=== PATIENT | male | born 1975 | race Caucasian/White ===

== ENCOUNTER 2016-08-27 11:20 | Emergency (ER) | payer BC, OTHER ==
[~2016-08-27] VITALS: Ht 180.3 cm; Wt 107.4 kg
[~2016-08-27 11:20] MED LIST: IMT100 PO; LPR25 PO; MRLP527 PO; OMEP20CA59 PO
[2016-08-27 11:35] VITALS: TEMP 36.9; Ht 180.3 cm; Wt 107.4 kg
[2016-08-27] MEDS ORDERED: GLUC1CAP35 PO (11:55)
[2016-08-27] MEDS ORDERED: MULT-106 PO (11:55)
[2016-08-27] MEDS ORDERED: CHOL1000 PO (11:55)
--- NOTE | 2016-08-27 12:29 | DIAGNOSTIC IMAGING REPORT ---
CHEST ONE VIEW PORTABLE CLINICAL HISTORY: Dizziness COMPARISON STUDY: No previous studies for comparison. FINDINGS: The cardiac and mediastinal contours are normal. There is no evidence of focal pulmonary consolidation. There is no evidence of failure. No pleural effusions are visualized.[ IMPRESSION: No active disease in the chest. Electronically signed by: Sudarshan Schreiber M.D. 08/27/2016 12:28 PM Dictated Date/Time: 08/27/2016 12:27 PM
[2016-08-27 13:05] LABS: BASO % 0.4 %; BASO ABS # 0.02 K/uL (0-0.2); COMPLETE YES; EOS % 2.6 %; HEMATOCRIT 42.5 % (42-52); IG% 0.5 %; LYMPH % 35.6 %; LYMPH ABS # 1.95 K/uL (1.2-3.4); MEAN CORPUSCULAR HEMOGLOBIN 30.2 pg (25-34); MEAN PLATELET VOLUME 9.1 fL (7.4-10.4); NEUT % 52.9 %; PLATELET COUNT 222 K/uL (130-400); RED BLOOD COUNT 5.06 M/uL (4.7-6.1); WHITE BLOOD COUNT 5.47 K/uL (4.8-10.8)
[2016-08-27] MEDS ORDERED: SODIUM CHLORIDE 0.9% 1000ML 1,000 ML IV STA (13:13)
[2016-08-27 13:14] LABS: BUN/CREATININE RATIO 15.4 (10-20); CALCIUM 9.3 mg/dl (8.5-10.1)
[2016-08-27 13:24] LABS: CKMB/CK RATIO 1.8 (0-3.0); THYROID STIMULATING HORMONE 2.08 uIu/ml (0.300-4.500)
[2016-08-27 13:30] LABS: URINE APPEARANCE CLOUDY (CLEAR); URINE BILIRUBIN NEG (NEG); URINE COLOR YELLOW; URINE EPITHELIAL CELL AUTO 0-5 /lpf (0-5); URINE NITRITE NEG (NEG); URINE SPECIFIC GRAVITY 1.004 (1.000-1.030); UROBILINOGEN NEG (NEG); ZZUR CULT IF INDIC CLEAN CATCH NO
[2016-08-27 13:31] LABS: MANUAL MICROSCOPIC REQUIRED? NO; REVIEW REQ? NO
[2016-08-27] MEDS ORDERED: OPTIRAY 320 IV PRN (14:30)
--- NOTE | 2016-08-27 15:10 | DIAGNOSTIC IMAGING REPORT ---
CT HEAD WITHOUT CONTRAST (CT) CLINICAL HISTORY: Frontal ELDER, dizziness SHORTNESS OF BREATH COMPARISON STUDY: No previous studies for comparison. TECHNIQUE: Axial CT of the brain is performed from the vertex to the skull base. IV contrast was not administered for this examination. CT DOSE: 720.95 mGycm FINDINGS: No intra or extra-axial mass lesions are visualized. There is no CT evidence of acute cortical infarction. There is no evidence of midline shift. There is no acute hemorrhage. No calvarial fractures are visualized. There is no evidence of pathologic ventricular dilatation. There is no evidence of acute sinusitis IMPRESSION: No acute intracranial findings Electronically signed by: Sudarshan Schreiber M.D. 08/27/2016 3:08 PM Dictated Date/Time: 08/27/2016 3:08 PM
--- NOTE | 2016-08-27 15:15 | DIAGNOSTIC IMAGING REPORT ---
CT ANGIOGRAM OF THE CHEST CLINICAL HISTORY: Torus of breath, dizziness, elevated d-dimer. COMPARISON STUDY: Chest x-ray dated 08/27/2016 TECHNIQUE: Following the IV administration of 118 mL of Optiray-320, CT angiogram of the thorax was performed from the thoracic inlet to the lung bases utilizing the pulmonary embolus protocol. Images are reviewed in the axial, sagittal, and coronal planes. IV contrast was administered without complication. MIP imaging was performed. CT DOSE: 527.24 mGycm FINDINGS: No pathologically enlarged axillary mediastinal or hilar lymph nodes were visualized. There was no evidence of thoracic aortic dilatation. There were no pulmonary artery filling defects to indicate acute pulmonary embolism. No pleural effusions are visualized. There are mild dependent atelectatic changes. There is no focal pulmonary consolidation. There is free intraperitoneal air, possibly related to recent surgery. Please correlate with date of prior surgery. IMPRESSION: 1. No acute intrathoracic findings. No CT evidence of acute pulmonary embolus. 2. Free intraperitoneal air. By history the patient is status post recent hernia surgery. Please correlate clinically as well as with the date of recent surgery. Electronically signed by: Sudarshan Schreiber M.D. 08/27/2016 3:14 PM Dictated Date/Time: 08/27/2016 3:09 PM
[2016-08-27 16:06] VITALS: BP 109/78; PULSE 62; O2SAT 100
--- NOTE | 2016-08-27 23:26 | EMERGENCY ROOM VISIT NOTE ---
History First contact with patient: 13:02 Chief Complaint: DIZZY Stated Complaint: LIGHT HEADED, DIZZY,S/P SURGERY 08/21/16 Nursing Triage Summary: pt c/o intermittent dizziness since . on saturday patietn had hernia repair. ever since home from surgery pt c/o intermittent dizziness. pt states symptoms usually after "screen time" anything from tv to phone but had an episodde while walking on saturday. this morning patient states he woke up with a headache and feeling dizziy. denies numbness tingling or weakness. hernia incisions intact and approximated. no drainage noted History of Present Illness The patient is a 41 year old male who presents to the Emergency Room with complaints of intermittent light headiness since his surgery on 08/21/16. The patient underwent an umbilical herniorrhaphy with Dr. Liu. The patient denies any significant abdominal pain, and has stopped taking his pain medications. He does report being gassy, but has been tolerating food well. The patient reports that his episodes of lightheadedness and happen at any time , at rest or when active. He reports that the symptoms will last approximately 15-30 minutes, approximately every hour or two. The patient occasionally will have diaphoresis, nausea and palpitations. The patient denies any chest pain or true shortness of breath. He has not noticed any swelling of the extremities. The patient denies any history of cardiopulmonary disease or thyroid disease. He did report a mild frontal headache this morning. He has had no recent fevers or chills, urinary symptoms, constipation or diarrhea. Patient does admit to mild lightheadedness at the time of exam. Review of Systems HEENT: Denies visual problems, hearing loss, tinnitus. Denies difficulty swallowing or oral lesions. PULMONARY: Denies cough, shortness of breath, sputum production or hemoptysis. CARDIOVASCULAR: Denies chest pain, dyspnea on exertion, orthopnea or peripheral edema. GASTROINTESTINAL: Denies diarrhea, constipation, vomiting or significant abdominal pain. GENITOURINARY: Denies dysuria, frequency, urgency or nocturia. NEUROLOGIC: Denies history of epilepsy, CVA, TIA or chronic headaches. MUSCULOSKELETAL: Denies history of joint tenderness/swelling. SKIN: Denies rashes or lesions. PSYCHIATRIC: Denies history of depression or mental illness. ENDOCRINE: Denies history of diabetes or thyroid disorders. Past Medical/Surgical History Medical Problems: (1) Migraines Surgical Problems: (1) History of umbilical hernia repair Family History FH: cancer FH: heart disease FH: hypertension Social History Smoking Status: Never Smoker Alcohol Use: none Marital Status: Housing Status: lives with family Occupation Status: employed Current/Historical Medications Scheduled Cholecalciferol (Vitamin D3), 1 TAB PO DAILY Ccxclqqvsdl-Znirhvmjdur-Eyx C- (Glucosamine Chondroitin), 1 TAB PO DAILY Multiple Vitamins W/ Minerals (One Daily Mens), 1 TAB PO DAILY Omeprazole (Prilosec), 20 MG PO DAILY Sumatriptan Succinate (Imitrex), 100 MG PO prn ud Allergies Coded Allergies: Morphine (Unverified Allergy, Unknown, ITCHINESS, 09/18/14) Physical Exam Vital Signs Date Time Temp Pulse Resp B/P Pulse Ox O2 Delivery O2 Flow Rate FiO2 08/27/16 16:06 62 18 109/78 100 08/27/16 14:35 61 18 118/81 97 Room Air 08/27/16 12:28 58 18 112/69 98 Room Air 113/80 115/75 08/27/16 12:27 68 08/27/16 11:35 36.9 64 18 144/78 97 Room Air Physical Exam CONSTITUTIONAL: Healthy and well nourished. Alert and oriented X 3 with positive affect. Patient appears in mild distress from his lightheadedness. HEENT: Normocephalic, atraumatic. Pupils equal, round and reactive. Ears and nares are clear. No scleral icterus or conjunctival injection/pallor. OROPHARYNX: Mucous membranes are dry. No tonsillar hypertrophy or exudates. NECK: Full active range of motion without discomfort. No JVD or carotid bruits. RESPIRATORY: Clear to auscultation bilaterally with no wheezing, crackles, rhonchi or stridor. CARDIOVASCULAR: Regular rate and rhythm with no murmurs, rubs or gallops. GASTROINTESTINAL: Bowel sounds present in all quadrants. Surgical incisions are healing well without any peripheral erythema. Patient has no significant periportal tenderness to palpation, rigidity, guarding or rebound. No CVA tenderness. MUSCULOSKELETAL: Full range of motion of all joints without discomfort. INTEGUMENTARY: No rash or other significant dermatologic conditions noted. HEMATOLOGIC: No ecchymosis or petechiae noted. NEUROLOGIC: No focal neurologic deficits noted. Medical Decision & Procedures ER Provider Diagnostic Interpretation: My interpretation of an ECG shows a normal sinus rhythm of [address] elevation or other conduction abnormalities. My interpretation of the portable chest x-ray does not show any consolidations, pneumothorax, widened mediastinum or obvious abdominal free air. Radiologist report is as follows: CHEST ONE VIEW PORTABLE CLINICAL HISTORY: Dizziness COMPARISON STUDY: No previous studies for comparison. FINDINGS: The cardiac and mediastinal contours are normal. There is no evidence of focal pulmonary consolidation. There is no evidence of failure. No pleural effusions are visualized.[ IMPRESSION: No active disease in the chest. Chest CT angiography does not show any evidence for pulmonary emboli. Abdominal free air is noted, secondary to his recent surgery. Radiologist report is as follows: CT ANGIOGRAM OF THE CHEST CLINICAL HISTORY: Torus of breath, dizziness, elevated d-dimer. COMPARISON STUDY: Chest x-ray dated 08/27/2016 TECHNIQUE: Following the IV administration of 118 mL of Optiray-320, CT angiogram of the thorax was performed from the thoracic inlet to the lung bases utilizing the pulmonary embolus protocol. Images are reviewed in the axial, sagittal, and coronal planes. IV contrast was administered without complication. MIP imaging was performed. CT DOSE: 527.24 mGycm FINDINGS: No pathologically enlarged axillary mediastinal or hilar lymph nodes were visualized. There was no evidence of thoracic aortic dilatation. There were no pulmonary artery filling defects to indicate acute pulmonary embolism. No pleural effusions are visualized. There are mild dependent atelectatic changes. There is no focal pulmonary consolidation. There is free intraperitoneal air, possibly related to recent surgery. Please correlate with date of prior surgery. IMPRESSION: 1. No acute intrathoracic findings. No CT evidence of acute pulmonary embolus. 2. Free intraperitoneal air. By history the patient is status post recent hernia surgery. Please correlate clinically as well as with the date of recent surgery. Laboratory Results 08/27/16 12:20 Red Blood Count 5.06, Mean Corpuscular Volume 84.0, Mean Corpuscular Hemoglobin 30.2, Mean Corpuscular Hemoglobin Concent 36.0, Mean Platelet Volume 9.1, Neutrophils (%) (Auto) 52.9, Lymphocytes (%) (Auto) 35.6, Monocytes (%) (Auto) 8.0, Eosinophils (%) (Auto) 2.6, Basophils (%) (Auto) 0.4, Neutrophils # (Auto) 2.89, Lymphocytes # (Auto) 1.95, Monocytes # (Auto) 0.44, Eosinophils # (Auto) 0.14, Basophils # (Auto) 0.02 08/27/16 12:20 Test 08/27/16 12:20 08/27/16 12:25 08/27/16 12:35 White Blood Count 5.47 K/uL (4.8-10.8) Red Blood Count 5.06 M/uL (4.7-6.1) Hemoglobin 15.3 g/dL (14.0-18.0) Hematocrit 42.5 % (42-52) Mean Corpuscular Volume 84.0 fL (80-100) Mean Corpuscular Hemoglobin 30.2 pg (25-34) Mean Corpuscular Hemoglobin Concent 36.0 g/dl (32-36) Platelet Count 222 K/uL (130-400) Mean Platelet Volume 9.1 fL (7.4-10.4) Neutrophils (%) (Auto) 52.9 % Lymphocytes (%) (Auto) 35.6 % Monocytes (%) (Auto) 8.0 % Eosinophils (%) (Auto) 2.6 % Basophils (%) (Auto) 0.4 % Neutrophils # (Auto) 2.89 K/uL (1.4-6.5) Lymphocytes # (Auto) 1.95 K/uL (1.2-3.4) Monocytes # (Auto) 0.44 K/uL (0.11-0.59) Eosinophils # (Auto) 0.14 K/uL (0-0.5) Basophils # (Auto) 0.02 K/uL (0-0.2) RDW Standard Deviation 38.8 fL (36.4-46.3) RDW Coefficient of Variation 12.9 % (11.5-14.5) Immature Granulocyte % (Auto) 0.5 % Immature Granulocyte # (Auto) 0.03 K/uL (0.00-0.02) D-Dimer 550 ug/L FEU (0-500) Anion Gap 9.0 mmol/L (3-11) Est Creatinine Clear Calc Drug Dose 118.7 ml/min Estimated GFR () 106.4 Estimated GFR (Non- 91.8 BUN/Creatinine Ratio 15.4 (10-20) Calcium Level 9.3 mg/dl (8.5-10.1) Total Bilirubin 0.6 mg/dl (0.2-1) Aspartate Amino Transf (AST/SGOT) 22 U/L (15-37) Alanine Aminotransferase (ALT/SGPT) 40 U/L (12-78) Alkaline Phosphatase 80 U/L (45-117) Total Creatine Kinase 68 U/L (39-308) Creatine Kinase MB 1.2 ng/ml (0.5-3.6) Creatine Kinase MB Ratio 1.8 (0-3.0) Total Protein 7.8 gm/dl (6.4-8.2) Albumin 3.9 gm/dl (3.4-5.0) Globulin 3.9 gm/dl (2.5-4.0) Albumin/Globulin Ratio 1.0 (0.9-2) Thyroid Stimulating Hormone (TSH) 2.080 uIu/ml (0.300-4.500) Bedside Troponin I 0.000 ng/ml (0-0.045) Urine Color YELLOW Urine Appearance CLOUDY (CLEAR) Urine pH 6.0 (4.5-7.5) Urine Specific [place] 1.004 (1.000-1.030) Urine Protein NEG (NEG) Urine Glucose (UA) NEG (NEG) Urine Ketones NEG (NEG) Urine Occult Blood NEG (NEG) Urine Nitrite NEG (NEG) Urine Bilirubin NEG (NEG) Urine Urobilinogen NEG (NEG) Urine Leukocyte Esterase NEG (NEG) Urine WBC (Auto) 0 /hpf (0-5) Urine RBC (Auto) 0-4 /hpf (0-4) Urine Hyaline Casts (Auto) 0 /lpf (0-5) Urine Epithelial Cells (Auto) 0-5 /lpf (0-5) Urine Bacteria (Auto) NEG (NEG) The above labs were reviewed. D-dimer is elevated, otherwise remaining labs are completely normal. Medications Administered Medications (Trade) Dose Ordered Sig/Vaibhav Route Start Time Stop Time Status Last Admin Dose Admin Sodium Chloride (Nss 1000ml) 1,000 ml @ 999 mls/hr Q1H1M STAT IV 08/27/16 13:13 08/27/16 14:13 DC 08/27/16 14:03 999 MLS/HR ED Course Patient history and physical exam were performed. Nurse's notes were reviewed. Vital signs were reviewed and normal. Orthostatic vital signs were also normal. Orders were placed by nursing protocol. IV access was established. After my exam, I also ordered a liter normal saline bolus. An ECG and portable chest x-ray were normal. Review of labs shows an elevated d-dimer, otherwise remaining labs were normal. Chest CT angiography did not show any evidence for pulmonary emboli, pneumothorax or other acute findings. Findings were discussed with Dr. Zapata, ED attending physician, who agrees with outpatient management. The patient was encouraged to follow up with [facility] cardiology within the next 2-3 days. He was instructed to restrict his activities until reevaluated. He was instructed to return to the emergency department for any progressive worsening symptoms. The patient was happy with plan of care, voice understanding of all discharge instructions, and denied any significant symptoms at the time of discharge. Medical Decision Patient presents to the emergency department with primary complaint of lightheadedness since his surgery 6 days ago. The patient's workup today does not show any specific etiologies. He does not appear to be significant dehydrated with normal orthostatics. He is not anemic. He is also afebrile without leukocytosis, and has a benign abdomen on exam. His workup does not suggest any significant acute cardiopulmonary etiology. He did have an elevated d-dimer, however this is likely secondary to his surgery. His CT does not show any evidence for pulmonary emboli. At this point, I do feel that the patient is safe for outpatient cardiology follow-up. Impression Primary Impression: Lightheadedness Additional Impression: History of umbilical hernia repair Departure Information Referrals Jatinder Malcolm M.D. (PCP) Patient Instructions [facility] Problem Qualifiers
== END 2016-08-27 16:07 | disposition home or self-care (01) ==
LOC: C.EDB 11:21 → C.EDC 16:07
DX: R42 Dizziness and giddiness (principal); Z79.899 Other long term (current) drug therapy; Z98.890 Other specified postprocedural states; Z88.5 Allergy status to narcotic agent; Z80.9 Family history of malignant neoplasm, unspecified; Z82.49 Family history of ischemic heart disease and other diseases of the circulatory system